=== PATIENT | female | born 1995 | race Caucasian/White ===

== ENCOUNTER 2020-06-26 17:14 | Inpatient (IN) | payer OTHER, SELFPAY ==
[2020-06-26] VITALS (11 sets, daily range): BP systolic 107–131; BP diastolic 55–69; PULSE 98–143; RESP 18–20; TEMP 36.3–37.2; O2SAT 97–98; BMI 24.2
[2020-06-26] MEDS: Haloperidol Lactate 5 MG/ML VIAL IM ×2 (17:30→22:23)
--- NOTE | 2020-06-26 17:49 | ED_ITS ---
HPI - Psych General Chief Complaint: Psychiatric Symptoms Stated Complaint: crisis Time Seen by Provider: 06/26/20 17:34 Source: EMS Mode of arrival: EMS Limitations: no limitations History of Present Illness HPI Narrative: patient comes to the emergency room, being brought by EMS. According to EMS, the patient was in charge with her family, had just returned home after being in the . Seems that the whole family was praying for the patient, then the patient became very agitated, started ripping her clothes off. patient had to be restrained by EMS and was brought to the emergency room. Patient is unable to give any history, patient keeps saying God is not there . According to PD who is at the scene, they know the patient her family, seems that the patient might have history of schizophrenia but they are not sure Related Data Allergies Allergy/AdvReac Type Severity Reaction Status Date / Time No Known Allergies Allergy Verified 06/26/20 17:34 Review of Systems Review of Systems: Yes Unobtainable due to mental status PMFSH Past Medical History Medical History Schizophrenia Social History Social History Alcohol intake: unknown Smoking Status: Unknown if ever smoked Use of substances other than those prescribed or required for medical reasons: Unknown Advance Directives: No Advance Directives Information Provided: No Physical Exam Vital Signs: Vital Signs: Last Vital Signs Temp 97.3 F 06/26/20 23:15 Pulse 98 06/26/20 23:15 Resp 18 06/26/20 23:15 BP 107/64 06/26/20 23:15 Pulse Ox 97 06/26/20 23:15 Body Mass Index 24.2 Appearance: patient is alert, unable to answer any questions, keeps failing her arms and legs, does not seem to be intentionally trying to harm anyone Eyes: Pupils equal, round and reactive to light. ENT: Pharynx normal. Neck: Normal inspection. Neck supple. No lymph nodes noted. No crepitus CVS: Normal heart rate and rhythm. Pulses normal. Normal S1 and S2 Respiratory: No respiratory distress. Breath sounds normal. No Wheezing. No rales Abdomen: Soft and nontender. No rigidity. No distention. good BS x4 Skin: Skin warm and dry. Normal skin color. Normal skin turgor. Extremities: No lower extremity edema. No lower extremity edema. No Lacerations. No Rash Neuro: Oriented X 3. No motor deficit. No sensory deficit. Moving all ext ermities. No slurred speech. Psych: flat affect, yelling advent things, patient uncooperative Course Course Course Narrative: Less than an hour after the 1st physical and chemical restraint, patient was taking off 4 point restraints. Patient remained calm and cooperative, sitting in her bed. Later in the evening, approximately at 22:00, patient became agitated, combative, taking her clothes off, becoming sexually provocative with the staff, patient had to be restrained physically and chemically again. Patient is now on four-point restraint. I will re-evaluate the patient again in 1 hour Patient reassessed, patient is sleeping unrestrained. For the shift, patient has been physically and chemically restrained twice. Patient does not seem to have intention of hurting anyone, patient is quite psychotic at this time. [facility] evaluated the patient, it seems that she has possibly schizoaffective disorder. Patient is under Section 12 now, patient is a bed search now. Sign-out given to Dr. Cyr [facility] - Psych Restraints Face to Face Assessment: Face to Face Assessment: Current Situation: After assessment of the patient, a review of the pertinent medical record and a discussion with nursing staff, I feel the patient requires a restrain intervention. Reaction To: [] Medical Condition: [] Behavioral State: [] Continued Need: [] Lab Data Result diagrams: 06/26/20 21:12 06/26/20 21:12 Labs: Lab Results 06/26/20 06/26/20 Range/Units 21:12 21:12 WBC 10.9 H (4.8-10.8) X10*3/uL RBC 4.59 (4.20-5.50) X10*6/uL Hgb 12.8 (12.0-16.0) g/dl Hct 38.4 (37-47) % MCV 83.7 (80-98) fL MCH 27.9 (27.0-33.0) pg MCHC 33.3 (31.0-35.0) g/dl RDW 12.7 (11.0-16.0) % Plt Count 253 (160-400) X10*3/uL MPV 9.9 (9.4-12.3) fL Immature Gran % (Auto) 0.2 (0.0-0.4) % Neut % (Auto) 67.9 (45-73) % Lymph % (Auto) 24.2 (20-40) % [place] % (Auto) 7.2 (2-11) % Eos % (Auto) 0.3 (0-4) % Baso % (Auto) 0.2 (0-2) % Lymph # (Auto) 2.6 (1.2-4.9) X10*3/uL [place] # (Auto) 0.8 (0.1-1.2) X10*3/uL Eos # (Auto) 0.0 (0.0-0.4) X10*3/uL Baso # (Auto) 0.0 (0.0-0.2) X10*3/uL Abs Immat Gran (auto) 0.02 (0.00-0.03) X10*3/uL Absolute Neuts (auto) 7.4 (2.0-8.3) X10*3/uL Absolute Nucleated RBC 0.000 (0.0-0.012) X10*3/uL Nucleated RBC % (auto) 0.0 (0.0-0.2) /100WBC Sodium 139 (135-145) mmol/L Potassium 3.7 (3.3-5.1) mmol/l Chloride 105 (96-108) mmol/L Carbon Dioxide 22 (22-29) mmol/L Anion Gap 16 (12-20) BUN 13 (9-16) mg/dL Creatinine 0.81 (0.5-1.4) mg/dL Estim Creat Clear Calc 101.9 Estimated GFR > 60 Random Glucose 100 (60-115) mg/dL Calcium 9.4 (8.4-10.2) mg/dL Total Bilirubin 0.8 (0.0-1.0) mg/dL Direct Bilirubin 0.3 (0.0-0.5) mg/dL AST 22 (5-31) U/L ALT 9 (0-31) U/L Alkaline Phosphatase 55 (39-117) U/L Total Protein 8.2 H (6.5-8.0) g/dL Albumin 4.9 (3.5-5.0) g/dL Discharge Plan Discharge Clinical Impression: Acute psychosis
--- NOTE | 2020-06-26 18:52 | PC.NURSE ---
pt much more calm and cooperative at this time, asking for phone numbers from cell phone, provided. pt back in room at this time, educated about bh and sec 12 process. pt sts im gonna try and just rest a little .
--- NOTE | 2020-06-26 20:21 | PC.NURSE ---
Pt quiet, wandering into other patient rooms, confused, redirectable.
[2020-06-26 21:20] LABS: Basophils Percent Auto 0.2 % (0-2); Eosinophils Percent Auto 0.3 % (0-4); Hematocrit 38.4 % (37-47); Hemoglobin 12.8 g/dl (12.0-16.0); Imm Gran Abs Auto 0.02 X10*3/uL (0.00-0.03); Imm Gran Pct Auto 0.2 % (0.0-0.4); Lymphocytes Absolute Auto 2.6 X10*3/uL (1.2-4.9); Lymphocytes Percent Auto 24.2 % (20-40); MANUAL DIFF FLAG NO; Mean Corpuscular HGB Conc 33.3 g/dl (31.0-35.0); Mean Corpuscular Hemoglobin 27.9 pg (27.0-33.0); Mean Corpuscular Volume 83.7 fL (80-98); Mean Platelet Volume 9.9 fL (9.4-12.3); Monocytes Absolute Auto 0.8 X10*3/uL (0.1-1.2); Monocytes Percent Auto 7.2 % (2-11); Neutrophils Absolute Auto 7.4 X10*3/uL (2.0-8.3); Neutrophils Percent Auto 67.9 % (45-73); Platelet Count 253 X10*3/uL (160-400); Red Blood Count 4.59 X10*6/uL (4.20-5.50); Red Cell Distribution Width 12.7 % (11.0-16.0); White Blood Count 10.9 X10*3/uL (4.8-10.8)
[2020-06-26 21:38] LABS: Alanine Aminotransferase 9 U/L (0-31); Albumin Level 4.9 g/dL (3.5-5.0); Alkaline Phosphatase 55 U/L (39-117); Anion Gap 16 (12-20); Aspartate Amino Transferase 22 U/L (5-31); Bilirubin Direct 0.3 mg/dL (0.0-0.5); Bilirubin Total 0.8 mg/dL (0.0-1.0); Blood Urea Nitrogen 13 mg/dL (9-16); Calcium 9.4 mg/dL (8.4-10.2); Carbon Dioxide 22 mmol/L (22-29); Chloride 105 mmol/L (96-108); Creatinine Clr Calc Pharmacy 101.9; Estimated Glomerular Filt Rate > 60; Glucose Random 100 mg/dL (60-115); Potassium 3.7 mmol/l (3.3-5.1); Sodium 139 mmol/L (135-145); Total Protein 8.2 g/dL (6.5-8.0)
[2020-06-26] MEDS: diphenhydrAMINE HCL 50 MG/ML VIAL IM (22:23)
[2020-06-26] MEDS: LORazepam 2 MG/ML VIAL IM (22:23)
--- NOTE | 2020-06-26 22:24 | PC.NURSE ---
Pt disrobing outside of room. Asked by tech to button up loren. Refused. Swatted at RN who attempted to help button loren. At the phone, sitting in a provocative manner. No, dial the phone for me , nonsensical speech. Security called, became combative when they tried to intervene. Physically restrained at 2199. haldol 5 MG, ativan 2 MG, and benadryl 50 MG IM given at 2114.
--- NOTE | 2020-06-26 23:45 | PC.NURSE ---
PT restrained at 22:00. Restraints released at 23:30 following agreement to appropriate behavior on the unit from the PT. When the PT was released from restraints she was calm and cooperative. PT fell asleep right after restraints were released.
[2020-06-27 06:20] VITALS: RESP 16
--- NOTE | 2020-06-27 07:45 | PC.NURSE ---
Pt resting, respirations even and unlabored, in no apparent distress. Pt is inpatient bedsearch.
[2020-06-27 10:08] VITALS: RESP 18
[2020-06-27 12:18] VITALS: RESP 18
--- NOTE | 2020-06-27 17:53 | PC.NURSE ---
Pt continues sleeping, was awake making phone calls then returned to bed. Respirations even and unlabored in no apparent distress.
[2020-06-27 19:27] LABS: Amphetamine Screen Urine Not Detected (Not Detect); Barbiturates, Urine Not Detected (Not Detect); Benzodiazepines Screen Urine Not Detected (Not Detect); Cannabinoid Screen Urine POSITIVE (Not Detect); Cocaine Screen Urine Not Detected (Not Detect); Opiate Screen Urine Not Detected (Not Detect); Phencyclidine Screen Urine Not Detected (Not Detect)
[2020-06-27 20:12] VITALS: BP 112/77; PULSE 90; RESP 20; TEMP 36.6; O2SAT 100
[2020-06-27 22:00] VITALS: PULSE 18
[2020-06-28] VITALS (10 sets, daily range): BP systolic 99–114; BP diastolic 69–72; PULSE 82–89; RESP 16–20; TEMP 36.6–36.9; O2SAT 96–98
--- NOTE | 2020-06-28 05:03 | PC.NURSE ---
S/E:pt calm and cooperative. Ambulated to bathroom with steady gait. made a phone call. VSS. Flat mood. slept well. Section 12 in patient bed search continues.
--- NOTE | 2020-06-28 07:15 | PC.NURSE ---
Report received from CHRISTI Sanon. Pt resting, Resp unlabored.
--- NOTE | 2020-06-28 10:01 | PC.NURSE ---
Pt awake, on telephone with mother. Per report, pt is anxious re: behavior of another pt on unit, who is very agitated. MHA w/ pt- reassured.
--- NOTE | 2020-06-28 11:11 | PC.NURSE ---
[facility] called to request assessment information- state they will fax. N March contacted re: possible psych evaluation.
--- NOTE | 2020-06-28 12:22 | PC.NURSE ---
Pt resting, awake, no concerns reported.
[2020-06-28 14:08] LABS: Glucose Urine UA NEG (NEG); Leukocyte Esterase Urine NEG (NEG); Nitrite Urine NEG (NEG); Specific Gravity - Urine >= 1.030 (1.005-1.025); Urine Blood NEG (NEG); Urine Ketones >=80 MG/DL (NEG); Urine Protein NEG (NEG-TRACE)
[2020-06-28 14:12] LABS: Appearance Urine CLOUDY; Color Urine YELLOW; UACC Culture Trigger NO; UPreg QC Valid YES; Urine Pregnancy NEGATIVE (NEGATIVE)
--- NOTE | 2020-06-28 14:55 | PC.NURSE ---
Pt currently in shower.
--- NOTE | 2020-06-28 15:56 | PC.NURSE ---
Pt reporting that she has noticed some discharge coming from nipple of left breast. Kevin Wilson aware.
--- NOTE | 2020-06-28 16:21 | PC.NURSE ---
Pt seen by Dwight Mar- per Dwight Mar, pt does not believe she neeeds medications. While in pod pt has been in behavioral control, affect guarded, responds to questions after a delay.
--- NOTE | 2020-06-28 16:28 | MHC.CARE ---
Late Entry for encounter dated 06/27/20 @ 20:00 CARE team approached by A staff re: questions pt was asking and requested that this promotion writer speak with pt to offer support or insight if needed. Pt was pleasant with this promotion writer on approach and while initially presenting as suspicious of the interaction, pt began to speak openly and went through pages of lists that pt had been making throughout the day. Pt was religiously preoccupied, with an intense vacant stare, and was slow to respond at times. Pt asked several times how she is to know whether she is God or the devil, and stated that she wants to know who she is and not who people tell her she is. Pt did not have any specific questions, though shared that she has had one other episode similar to her presentation on arrival on 06/26/20 while she was in the . [place] noting is that pt's behavioral presentation was improved from how she was presenting during her initial crisis evaluation, which was relayed to the [facility] crisis team for the clinician assigned to complete pt's MSU, however pt does present as possibly responding to internal stimuli, with christianity preoccupation and paranoid delusions. --- Today, 06/28/20 CARE team spoke briefly with ANTHONY Mar re: psych consult completed with pt, who stated that pt was previously on invega while in the however pt has not been compliant with medications and is not agreeable to medications at this time. Pt is pending another MSU with [facility] crisis later this evening, and at this time continues to board in the ED on a Section 12a as an inpt psych bedsearch.
--- NOTE | 2020-06-28 19:31 | PC.NURSE ---
Patient in her room, working on puzzle, calm and quiet, in good behavioral control, expresses her needs very appropriately, denied distress, will continue to monitor.
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
--- NOTE | 2020-06-28 20:19 | PC.NURSE ---
[facility] reassessed the patient, disposition in-patient bed search, patient aware, will continue to monitor.
[2020-06-28] MEDS: risperiDONE 1 MG TABLET PO (22:23)
--- NOTE | 2020-06-28 22:48 | PC.NURSE ---
Patient has new medication order, Resperidone 1 mg at bedtime, patient hesitant to take Risperidone, education leaflet was offered/educated of medication/finally agreed and took her medication. Patient tolerated well. Will monitor for any adverse reaction to the medication and provide safety and comfort.
--- NOTE | 2020-06-28 23:52 | PC.NURSE ---
Patient currently sitting in her chair, working on her puzzle, quiet & calm, no distress reported, will continue to monitor.
--- NOTE | 2020-06-29 01:19 | PC.NURSE ---
Patient in bed appears sleeping, no distress observed/reported, respiration +/=/non-labored bilaterally, will continue to monitor and provide comfort and safety.
--- NOTE | 2020-06-29 04:04 | PC.NURSE ---
Patient was up for 20 minutes, snacked/refreshed/back to bed. Denied distress. Will continue to monitor.
[2020-06-29 06:55] VITALS: BP 120/79; PULSE 116; RESP 16; TEMP 36.7; O2SAT 98
--- NOTE | 2020-06-29 06:55 | PC.NURSE ---
Patient in bed appears sleeping, no distress observed/reported, respiration +/=/non-labored bilaterally, will continue to monitor.
--- NOTE | 2020-06-29 07:37 | PC.NURSE ---
Report received from CHRISTI Sanon. Pt awake, affect even, states she slept well.
--- NOTE | 2020-06-29 08:48 | PC.NURSE ---
Pt currently on telephone
[2020-06-29 09:27] VITALS: BP 105/73; PULSE 74; TEMP 36.6; O2SAT 98
--- NOTE | 2020-06-29 09:58 | PC.NURSE ---
Pt resting in room, resp unlabored.
[2020-06-29 10:00] VITALS: RESP 18
--- NOTE | 2020-06-29 13:36 | PC.NURSE ---
Pt on telephone. Inquired re: inpatient plans. Pt has been on inpatient unit in past, but reviewed w/ pt inpatient process. Questions answered as asked.
[2020-06-29 13:57] LABS: COVID-19 Test Negative (Negative); IDNOW Serial# 9DD0AD1C
--- NOTE | 2020-06-29 16:49 | PC.NURSE ---
Pt awake, in common area, on telephone. Pt appears more focused, able to ask questions of staff as needed.
--- NOTE | 2020-06-29 17:11 | PC.NURSE ---
Report given to CHRISTI Melchor on M5.
[2020-06-29 17:33] VITALS: BP 108/72; PULSE 81; TEMP 36.7; O2SAT 99
[2020-06-29 18:00] VITALS: RESP 20
--- NOTE | 2020-06-29 19:42 | PC.NURSE ---
Patient calm, pleasant, smiling at time, denied distress, patient wants to know what time she is going to M5, care team called/no time line at this time/patient made aware, will continue to monitor.
[2020-06-29] MEDS: risperiDONE 1 MG TABLET PO (20:04)
[2020-06-29 20:39] VITALS: BP 151/85; PULSE 116; RESP 20; TEMP 36.6; O2SAT 97
--- NOTE | 2020-06-29 20:57 | PC.NURSE ---
Patient compliant with HS PO medication, calm and quiet, tentative time to go to M5 is 2130 per care team, patient made aware, will continue to monitor.
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
[2020-06-30 06:15] VITALS: BP 117/70; PULSE 83; RESP 18; TEMP 36.8
[2020-06-30 07:54] LABS: MANUAL DIFF FLAG NO
[2020-06-30 07:59] LABS: Basophils Percent Auto 0.2 % (0-2); Eosinophils Absolute Auto 0.1 X10*3/uL (0.0-0.4); Eosinophils Percent Auto 0.9 % (0-4); Hematocrit 39.7 % (37-47); Hemoglobin 12.9 g/dl (12.0-16.0); Imm Gran Abs Auto 0.01 X10*3/uL (0.00-0.03); Imm Gran Pct Auto 0.2 % (0.0-0.4); Lymphocytes Absolute Auto 1.8 X10*3/uL (1.2-4.9); Lymphocytes Percent Auto 30.5 % (20-40); Mean Corpuscular HGB Conc 32.5 g/dl (31.0-35.0); Mean Corpuscular Hemoglobin 27.6 pg (27.0-33.0); Mean Platelet Volume 10.2 fL (9.4-12.3); Monocytes Absolute Auto 0.4 X10*3/uL (0.1-1.2); Monocytes Percent Auto 7.6 % (2-11); Neutrophils Absolute Auto 3.5 X10*3/uL (2.0-8.3); Neutrophils Percent Auto 60.6 % (45-73); Platelet Count 219 X10*3/uL (160-400); Red Blood Count 4.67 X10*6/uL (4.20-5.50); Red Cell Distribution Width 12.6 % (11.0-16.0); White Blood Count 5.8 X10*3/uL (4.8-10.8)
[2020-06-30 08:27] LABS: Estimated Average Glucose 105 mg/dL; Hemoglobin A1c % 5.3 %
[2020-06-30 16:58] VITALS: BP 107/69; PULSE 81; TEMP 36.7
--- NOTE | 2020-06-30 20:21 | P.HPPS_ITS ---
HPI Chief Complaint: crisis Sources of Information: patient interviewed ( not able to give a clear narrative in history at this time) and crisis/core team assessment reviewed HPI Narrative: patient is a 24-year-old female brought to the emergency room by ambulance after her mother called 911. patient had been acting bizarrely at buddhist taking of her clothes feeling that she had done bad things and that she was the devil. She required chemical and physical restraint in the emergency r oom due to combative behavior. Patient has a history of bizarre psychotic behavior had been hospitalized previously in [place] patient unable to give me the time frame or dates. She apparently has not been taking antipsychotic medication she had been on Invega Systane a. patient has been off medication for the past 5 months. There is a history of bizarre self-harming behavior stabbing herself a pencil Past Psychiatric History: please see crisis eval for full hx per patient report 1 psychiatric admission was on Invega injectable previously Medical Evaluation Reviewed: Yes [facility] Medical History Schizophrenia Family History: positive for bipolar disorder Social History: patient currently living with her mother recently discharged from the [employer] secondary to psychotic break she is not no children Substance History: positive history of cocaine and marijuana use Trauma History: unclear at this time Diagnostics Vital Signs (24Hr): Vital Signs - 24 hr 06/29/20 20:39 06/30/20 06:15 06/30/20 16:58 Temperature 98 F 98.2 F 98.0 F Pulse Rate 116 H 83 81 Respiratory Rate 20 18 Blood Pressure 151/85 H 117/70 107/69 Pulse Oximetry 97 Body Mass Index 24.2 Labs Results: 06/30/20 07:44 06/26/20 21:12 Labs: Laboratory Results - last 48 hr 06/29/20 06/30/20 06/30/20 12:58 07:44 07:44 WBC 5.8 RBC 4.67 Hgb 12.9 Hct 39.7 MCV 85.0 MCH 27.6 MCHC 32.5 RDW 12.6 Plt Count 219 MPV 10.2 Immature Gran % (Auto) 0.2 Neut % (Auto) 60.6 Lymph % (Auto) 30.5 [place] % (Auto) 7.6 Eos % (Auto) 0.9 Baso % (Auto) 0.2 Lymph # (Auto) 1.8 [place] # (Auto) 0.4 Eos # (Auto) 0.1 Baso # (Auto) 0.0 Abs Immat Gran (auto) 0.01 Absolute Neuts (auto) 3.5 Absolute Nucleated RBC 0.000 Nucleated RBC % (auto) 0.0 Estimat Average Glucose 105 Hemoglobin A1c % 5.3 COVID-19 (YONI) Negative COVID-19 Clin Com See Note Meds/Allergies Meds Home Medications Acetaminophen (Acetaminophen 325 Mg Tablet) 650 mg PO Q6H PRN PRN Reason: Headache/Pain Mild Scale (1-3) Al Hydroxide/Mg Hydroxide (Magnesium Hydrox/Alum Hydrox 30 Ml Oral.Susp) 30 ml PO Q6H PRN PRN Reason: Heartburn/Nausea Diphenhydramine HCl (Diphenhydramine Hcl 25 Mg Tablet) 50 mg PO Q4H PRN PRN Reason: agitation Haloperidol (Haloperidol 5 Mg Tablet) 5 mg PO Q4H PRN PRN Reason: agitation Hydroxyzine HCl (Hydroxyzine Hcl 25 Mg Tablet) 25 mg PO BEDTIME PRN PRN Reason: Anxiety Lorazepam (Lorazepam 1 Mg Tablet) 2 mg PO Q4H PRN PRN Reason: agitation Magnesium Hydroxide (Milk Of Magnesia 30 Ml Oral.Susp) 30 ml PO DAILY PRN PRN Reason: Constipation Risperidone (Risperidone 0.5 Mg Tablet) 2 mg PO BEDTIME MARISELA Last Admin: 06/30/20 21:47 Dose: 2 mg Documented by: Trazodone HCl (Trazodone Hcl 50 Mg Tablet) 50 mg PO BEDTIME PRN PRN Reason: Insomnia Allergies Allergies Allergy/AdvReac Type Severity Reaction Status Date / Time No Known Allergies Allergy Verified 06/26/20 17:34 Mental Status Exam Mental Status Exam Narrative: patient with delusional guilt feeling somehow she is a devil guilty over past use of substances or paranoid concerns she is going to be killed Patient Appearance: Appropriate Patient Orientation: Person, Place and Situation Patient Behavior: Guarded, Suspicious and Anxious Mood Description: Suspicious, Withdrawn, Fearful, Anxious, Blunted, Sad and Nervous Affect Description: Depressed, Anxious and Sad Memory Description: Immediate Impaired and Episodic Impaired Delusions: Being Controlled and Paranoid Ideation Perceptual Disturbances: Hallucinations Thought Content: positive for Poverty of Content, positive for Thought Blocking, positive for Slowed Thinking, negative for Suicidal Ideation and negative for Homicidal Ideation Depressive Symptoms: Increased Anxiety, Diff. Making Decisions and Feelings of Guilt Judgement: Fair Judgement and Insight: patient currently excepting treatment review he denies thoughts of harm to self or others at this time cannot explain behavior Assessment & Plan Assessment & Plan (1) Acute psychosis: Status: Acute Code(s): F23 - Brief psychotic disorder (2) Psychosis, atypical: Status: Acute Code(s): F29 - Unspecified psychosis not due to a substance or known physiological condition (3) Cocaine use disorder, mild, abuse: Status: Acute Code(s): F14.10 - Cocaine abuse, uncomplicated Assessment and Plan: with patient had been started on Risperdal will continue for now consider change to Abilify questionable history of galactorrhea and enlarged breasts date to be confirmed check prolactin level. Patient has been off Invega injectable for 5 months recently relapsed with cocaine and marijuana monitor for self-harming behavior trying get discharge summary from [place] clarify history with mother as available will add Ativan for anxiety Patient educated on: medication risk/benefits Informed Consent: further education needed Reason for continued inpatient stay Substantial Risk for: harm to self and inability to function
[2020-06-30] MEDS: risperiDONE 0.5 MG TABLET 2 MG PO (21:47)
[2020-07-01 06:00] VITALS: BP 110/70; PULSE 67; TEMP 36.4
[2020-07-01 06:20] VITALS: BP 110/70; PULSE 67; RESP 16; TEMP 36.4; O2SAT 99
[2020-07-01 07:00] VITALS: BMI 20.3
[2020-07-01 08:56] LABS: Cholesterol 123 mg/dL; HDL Cholesterol 49 mg/dL; LDL Cholesterol Calculated 59 mg/dl; Triglycerides 77 mg/dL
[2020-07-01 09:18] LABS: TSH reflex Free T4 1.53 mIU/mL (0.32-4.0)
[2020-07-01 13:34] LABS: Reflex LDLD? No
[2020-07-01 18:00] VITALS: BP 106/56; PULSE 80; TEMP 37.1
[2020-07-01] MEDS: risperiDONE 0.5 MG TABLET 2 MG PO (20:50)
--- NOTE | 2020-07-01 21:31 | P.PNPSI_ITS ---
Subjective Subjective Reason For Visit: crisis Subjective Notes: Conditional Voluntary Interim History: pt irritable dysphoric thought blocking internally preoccupied difficulty expressing herself quite guarded has been out of room more Medication Compliance: Yes Side effects from medications: No Mental Status Exam Mental Status Exam Narrative: patient more guarded seems resistant to medication Patient Appearance: Appropriate Patient Orientation: Person, Place and Situation Patient Behavior: Guarded, Suspicious and Anxious Mood Description: Suspicious, Withdrawn, Fearful, Anxious, Blunted, Sad and Nervous Affect Description: Suspicious, Withdrawn, Depressed, Anxious and Apprehensive Ability to Follow Directions: Fair Memory Description: Immediate Impaired and Episodic Impaired Delusions: Being Controlled and Paranoid Ideation Perceptual Disturbances: Hallucinations Thought Process: Distracted and Rumination Thought Content: positive for Poverty of Content, positive for Thought Blocking, positive for Slowed Thinking, negative for Suicidal Ideation and negative for Homicidal Ideation Depressive Symptoms: Increased Anxiety, Diff. Making Decisions and Feelings of Guilt Judgement: Fair Judgement and Insight: patient currently excepting treatment review he denies thoughts of harm to self or others at this time cannot explain behavior Diagnostics Vital Signs (24Hr): Vital Signs - 24 hr 07/01/20 06:00 07/01/20 06:20 07/01/20 18:00 Temperature 97.5 F 97.5 F 98.8 F Pulse Rate 67 67 80 Respiratory Rate 16 Blood Pressure 110/70 110/70 106/56 L Pulse Oximetry 99 Body Mass Index 20.3 Labs Results: 06/30/20 07:44 06/26/20 21:12 Labs: Laboratory Results - last 48 hr 06/30/20 06/30/20 07/01/20 07:44 07:44 08:20 WBC 5.8 RBC 4.67 Hgb 12.9 Hct 39.7 MCV 85.0 MCH 27.6 MCHC 32.5 RDW 12.6 Plt Count 219 MPV 10.2 Immature Gran % (Auto) 0.2 Neut % (Auto) 60.6 Lymph % (Auto) 30.5 [place] % (Auto) 7.6 Eos % (Auto) 0.9 Baso % (Auto) 0.2 Lymph # (Auto) 1.8 [place] # (Auto) 0.4 Eos # (Auto) 0.1 Baso # (Auto) 0.0 Abs Immat Gran (auto) 0.01 Absolute Neuts (auto) 3.5 Absolute Nucleated RBC 0.000 Nucleated RBC % (auto) 0.0 Estimat Average Glucose 105 Hemoglobin A1c % 5.3 Triglycerides 77 Cholesterol 123 LDL Cholesterol, Calc 59 HDL Cholesterol 49 TSH 1.53 Medications Medications Current Medications Generic Name Dose Route Start Last Admin Trade Name Freq PRN Reason Stop Dose Admin Acetaminophen 650 mg 06/29/20 17:45 Acetaminophen 325 Mg Tablet PO Q6H PRN Headache/Pain Mild Scale (1-3) Al Hydroxide/Mg Hydroxide 30 ml 06/29/20 17:45 Magnesium Hydrox/Alum Hydrox 30 Ml Oral.Susp PO Q6H PRN Heartburn/Nausea Diphenhydramine HCl 50 mg 06/29/20 22:26 Diphenhydramine Hcl 25 Mg Tablet PO Q4H PRN agitation Haloperidol 5 mg 06/29/20 22:26 Haloperidol 5 Mg Tablet PO Q4H PRN agitation Hydroxyzine HCl 25 mg 06/29/20 17:45 Hydroxyzine Hcl 25 Mg Tablet PO BEDTIME PRN Anxiety Lorazepam 2 mg 06/29/20 22:26 Lorazepam 1 Mg Tablet PO Q4H PRN agitation Magnesium Hydroxide 30 ml 06/29/20 17:45 Milk Of Magnesia 30 Ml Oral.Susp PO DAILY PRN Constipation Risperidone 2 mg 06/30/20 21:00 07/01/20 20:50 Risperidone 0.5 Mg Tablet PO 2 mg BEDTIME MARISELA Administration Trazodone HCl 50 mg 06/29/20 17:45 Trazodone Hcl 50 Mg Tablet PO BEDTIME PRN Insomnia Allergies Allergies Allergy/AdvReac Type Severity Reaction Status Date / Time No Known Allergies Allergy Verified 06/26/20 17:34 Assessment & Plan Assessment & Plan (1) Cocaine use disorder, mild, abuse: Status: Acute Code(s): F14.10 - Cocaine abuse, uncomplicated Assessment and Plan: encourage sobriety (2) Psychosis, atypical: Status: Acute Code(s): F29 - Unspecified psychosis not due to a substance or known physiological condition Assessment and Plan: cont risperadol try and get additional hx and tx info prolactin pending Greater than 50% of the session was spent on counseling and/or coordination of care Patient educated on: medication risk/benefits and substance abuse Informed Consent: further education needed Reason for contiued inpatient stay Substantial Risk for: inability to function and rapid decompensation
[2020-07-02 06:17] VITALS: BP 104/66; PULSE 65; RESP 65; TEMP 36.1; O2SAT 99
[2020-07-02 08:21] LABS: Prolactin 96.2 ng/mL
--- NOTE | 2020-07-02 15:04 | MHC.CARE ---
CARE Team spoke with [facility] in [place] and Pt is benefited through the [facility] - Pt is connected to the [facility] out of the [place], [place]. Per the [place] [facility] contact representative - Pt will have to be registered in [facility] to be eligible for hospital reimbursement. Additional Info: Pts current PCP is Dr. Khoury - PCP
--- NOTE | 2020-07-02 15:21 | MHC.CARE ---
CARE Team left a message for VA registration to register Pt in the local [facility] and provided call back number to [facility] contact .
--- NOTE | 2020-07-02 15:30 | MHC.CARE ---
Day Care Home Provider at the [facility]
[2020-07-02] MEDS: ARIPiprazole 5 MG TABLET PO (15:56)
[2020-07-02 18:00] VITALS: BP 113/62; PULSE 84; TEMP 36.8
--- NOTE | 2020-07-02 21:43 | HO.PSYCHPN ---
Subjective Subjective Reason For Visit: psychotic episode Subjective Notes: Conditional Voluntary Interim History: patient has been guarded withdrawn somewhat suspicious continues with thought blocking educated regarding psychosis elevated prolactin has been accepting medication unable to give clear history Medication Compliance: Yes Mental Status Exam Mental Status Exam Narrative: patient more guarded seems resistant to medication Patient Appearance: Appropriate Patient Orientation: Person, Place and Situation Level of Consciousness: Awake and Alert Patient Behavior: Guarded, Suspicious and Anxious Mood Description: Suspicious, Withdrawn, Fearful, Anxious, Blunted, Sad and Nervous Affect Description: Suspicious, Withdrawn, Depressed, Anxious and Apprehensive Ability to Follow Directions: Fair Speech Pattern: Clear, Monotone, Soft-Spoken and Long Pauses Memory Description: Immediate Impaired and Episodic Impaired Diagnostics Vital Signs (24Hr): Vital Signs - 24 hr 07/02/20 06:17 07/02/20 18:00 Temperature 96.9 F 98.3 F Pulse Rate 65 84 Respiratory Rate 65 H Blood Pressure 104/66 113/62 Pulse Oximetry 99 Body Mass Index 20.3 Labs Results: 06/30/20 07:44 06/26/20 21:12 Labs: Laboratory Results - last 48 hr 07/01/20 07/01/20 08:20 08:20 Triglycerides 77 Cholesterol 123 LDL Cholesterol, Calc 59 HDL Cholesterol 49 TSH 1.53 Prolactin 96.2 H Medications Medications Current Medications Generic Name Dose Route Start Last Admin Trade Name Freq PRN Reason Stop Dose Admin Acetaminophen 650 mg 06/29/20 17:45 Acetaminophen 325 Mg Tablet PO Q6H PRN Headache/Pain Mild Scale (1-3) Al Hydroxide/Mg Hydroxide 30 ml 06/29/20 17:45 Magnesium Hydrox/Alum Hydrox 30 Ml Oral.Susp PO Q6H PRN Heartburn/Nausea Aripiprazole 5 mg 07/02/20 14:45 07/02/20 15:56 Aripiprazole 5 Mg Tablet PO 5 mg DAILY MARISELA Administration Diphenhydramine HCl 50 mg 06/29/20 22:26 Diphenhydramine Hcl 25 Mg Tablet PO Q4H PRN agitation Haloperidol 5 mg 06/29/20 22:26 Haloperidol 5 Mg Tablet PO Q4H PRN agitation Hydroxyzine HCl 25 mg 06/29/20 17:45 Hydroxyzine Hcl 25 Mg Tablet PO BEDTIME PRN Anxiety Lorazepam 2 mg 06/29/20 22:26 Lorazepam 1 Mg Tablet PO Q4H PRN agitation Magnesium Hydroxide 30 ml 06/29/20 17:45 Milk Of Magnesia 30 Ml Oral.Susp PO DAILY PRN Constipation Risperidone 2 mg 06/30/20 21:00 07/01/20 20:50 Risperidone 0.5 Mg Tablet PO 2 mg BEDTIME MARISELA Administration Trazodone HCl 50 mg 06/29/20 17:45 Trazodone Hcl 50 Mg Tablet PO BEDTIME PRN Insomnia Allergies Allergies Allergy/AdvReac Type Severity Reaction Status Date / Time No Known Allergies Allergy Verified 06/26/20 17:34 Assessment & Plan Assessment & Plan (1) Cocaine use disorder, mild, abuse: Status: Acute Code(s): F14.10 - Cocaine abuse, uncomplicated Assessment and Plan: encourage sobriety (2) Psychosis, atypical: Status: Acute Code(s): F29 - Unspecified psychosis not due to a substance or known physiological condition Assessment and Plan: prolactin elevated at 95 patient had been off antipsychotics for 6 months given material regarding psychosis question of cocaine induced psychosis try and get discharge summary from [facility] patient had been on Invega Systane a change Risperdal to Abilify also comes injectable with minimal risk of elevated prolactin consider MRI with cuts through pituitary these much reassurance and Education Greater than 50% of the session was spent on counseling and/or coordination of care
[2020-07-02] MEDS: risperiDONE 0.5 MG TABLET 1 MG PO (21:49)
[2020-07-03 07:23] VITALS: BP 103/54; PULSE 68; TEMP 36.7
[2020-07-03] MEDS: ARIPiprazole 5 MG TABLET PO (08:57)
[2020-07-03 18:00] VITALS: BP 125/90; PULSE 89; TEMP 36.4
[2020-07-03] MEDS: risperiDONE 0.5 MG TABLET 1 MG PO (20:15)
--- NOTE | 2020-07-03 23:35 | P.PNPSI_ITS ---
Subjective Subjective Date of Service: 07/03/20 Reason For Visit: psychotic episode Interim History: Vitals reviewed Labs reviewed Pt seen, chart reviewed and case discussed with nursing staff Pt lying in bed upon approach; she stares at pattern chart writer with blunted affect, speaks little and mostly only nods yes/no to questions. She says she's fine, denies SI, AVH. She denies any complaints. Pt says nothing else. Staff reports pt is med adherent, attends group and eating well and without behavioral incident; however she remains guarded and seemingly paranoid Medication Compliance: Yes Attending Groups: Yes Mental Status Exam Mental Status Exam Patient Appearance: Appropriate Level of Consciousness: Awake Patient Behavior: Guarded and Uncooperative Mood Description: Constricted Affect Description: Constricted Ability to Follow Directions: Fair Speech Pattern: Monotone and Delayed Thought Process: Goal Oriented Thought Content: positive for Goal Oriented Judgement: Poor Judgement and Insight: impaired Diagnostics Vital Signs (24Hr): Vital Signs - 24 hr 07/03/20 07:23 07/03/20 18:00 Temperature 98.1 F 97.6 F Pulse Rate 68 89 Blood Pressure 103/54 L 125/90 H Body Mass Index 20.3 Labs Results: 06/30/20 07:44 06/26/20 21:12 Labs: Laboratory Results - last 48 hr 07/01/20 08:20 Prolactin 96.2 H Medications Medications Current Medications Generic Name Dose Route Start Last Admin Trade Name Freq PRN Reason Stop Dose Admin Acetaminophen 650 mg 06/29/20 17:45 Acetaminophen 325 Mg Tablet PO Q6H PRN Headache/Pain Mild Scale (1-3) Al Hydroxide/Mg Hydroxide 30 ml 06/29/20 17:45 Magnesium Hydrox/Alum Hydrox 30 Ml Oral.Susp PO Q6H PRN Heartburn/Nausea Aripiprazole 5 mg 07/02/20 14:45 07/03/20 08:57 Aripiprazole 5 Mg Tablet PO 5 mg DAILY MARISELA Administration Diphenhydramine HCl 50 mg 06/29/20 22:26 Diphenhydramine Hcl 25 Mg Tablet PO Q4H PRN agitation Haloperidol 5 mg 06/29/20 22:26 Haloperidol 5 Mg Tablet PO Q4H PRN agitation Hydroxyzine HCl 25 mg 06/29/20 17:45 Hydroxyzine Hcl 25 Mg Tablet PO BEDTIME PRN Anxiety Lorazepam 1 mg 07/02/20 21:43 Lorazepam 1 Mg Tablet PO Q4H PRN agitation Magnesium Hydroxide 30 ml 06/29/20 17:45 Milk Of Magnesia 30 Ml Oral.Susp PO DAILY PRN Constipation Risperidone 1 mg 07/02/20 21:45 07/03/20 20:15 Risperidone 0.5 Mg Tablet PO 1 mg BEDTIME MARISELA Administration Trazodone HCl 50 mg 06/29/20 17:45 Trazodone Hcl 50 Mg Tablet PO BEDTIME PRN Insomnia Allergies Allergies Allergy/AdvReac Type Severity Reaction Status Date / Time No Known Allergies Allergy Verified 06/26/20 17:34 Assessment & Plan with with psychotic illness continue with primary teams tx plan
[2020-07-04 06:00] VITALS: BP 113/64; PULSE 69; TEMP 36.6
[2020-07-04] MEDS: ARIPiprazole 5 MG TABLET PO (08:53)
--- NOTE | 2020-07-04 13:55 | HO.PSYCHPN ---
Subjective Subjective Date of Service: 07/04/20 Reason For Visit: psychotic episode Interim History: Vitals reviewed Labs reviewed Pt seen, chart reviewed and case discussed with nursing staff Pt is more friendly and talkative on approach today. She says she's feeling better than when first arrived and that meds are helping; on note her affect is a little brighter and she demonstrates more facial expression. [employer] Pain[employer] Grader asked her to elaborate and she reports that she no longer has racing thoughts...the thoughts were coming so fast that i couldn't understand. Pt denies any AVH. She reports she's had some trouble sleeping and asks for Melatonin. Staff reports pt is med adherent, social in [place], eating well and safe on the unit without behavioral incident Medication Compliance: Yes Attending Groups: Yes Mental Status Exam Mental Status Exam Patient Appearance: Well Grooomed and Appropriate Patient Orientation: Person, Place and Situation Level of Consciousness: Awake and Appropriate Patient Behavior: Guarded (but less so) and Good Eye Contact Mood Description: Calm Affect Description: Relaxed and Blunted (but less so) Ability to Follow Directions: Good Speech Pattern: Clear, Monotone, Soft-Spoken and Delayed Delusions: Not Present Thought Process: Goal Oriented and Linear Thought Content: positive for [place] Judgement: Fair Judgement and Insight: impaired but improving Diagnostics Vital Signs (24Hr): Vital Signs - 24 hr 07/03/20 18:00 07/04/20 06:00 Temperature 97.6 F 97.9 F Pulse Rate 89 69 Blood Pressure 125/90 H 113/64 Body Mass Index 20.3 Labs Results: 06/30/20 07:44 06/26/20 21:12 Medications Medications Current Medications Generic Name Dose Route Start Last Admin Trade Name Freq PRN Reason Stop Dose Admin Acetaminophen 650 mg 06/29/20 17:45 Acetaminophen 325 Mg Tablet PO Q6H PRN Headache/Pain Mild Scale (1-3) Al Hydroxide/Mg Hydroxide 30 ml 06/29/20 17:45 Magnesium Hydrox/Alum Hydrox 30 Ml Oral.Susp PO Q6H PRN Heartburn/Nausea Aripiprazole 5 mg 07/02/20 14:45 07/04/20 08:53 Aripiprazole 5 Mg Tablet PO 5 mg DAILY MARISELA Administration Diphenhydramine HCl 50 mg 06/29/20 22:26 Diphenhydramine Hcl 25 Mg Tablet PO Q4H PRN agitation Haloperidol 5 mg 06/29/20 22:26 Haloperidol 5 Mg Tablet PO Q4H PRN agitation Hydroxyzine HCl 25 mg 06/29/20 17:45 Hydroxyzine Hcl 25 Mg Tablet PO BEDTIME PRN Anxiety Lorazepam 1 mg 07/02/20 21:43 Lorazepam 1 Mg Tablet PO Q4H PRN agitation Magnesium Hydroxide 30 ml 06/29/20 17:45 Milk Of Magnesia 30 Ml Oral.Susp PO DAILY PRN Constipation Risperidone 1 mg 07/02/20 21:45 07/03/20 20:15 Risperidone 0.5 Mg Tablet PO 1 mg BEDTIME MARISELA Administration Trazodone HCl 50 mg 06/29/20 17:45 Trazodone Hcl 50 Mg Tablet PO BEDTIME PRN Insomnia Allergies Allergies Allergy/AdvReac Type Severity Reaction Status Date / Time No Known Allergies Allergy Verified 06/26/20 17:34 Assessment & Plan Pt remains reticent but less so and with noticeably brighter affect; though speech not really spontaneous, she is more willing to engage. Will add Melatonin 3mg qhs for insomnia at patients request Otherwise, Continue with current tx plan Greater than 50% of the session was spent on counseling and/or coordination of care
[2020-07-04 18:00] VITALS: BP 114/66; PULSE 81; TEMP 36.9
[2020-07-04] MEDS: risperiDONE 0.5 MG TABLET 1 MG PO (21:12)
[2020-07-04] MEDS: Melatonin 3 MG TABLET PO (21:12)
--- NOTE | 2020-07-05 | MR_ITS ---
EXAMINATION: MR BRAIN WITHOUT AND WITH CONTRAST CLINICAL INFORMATION: Galactorrhea/hyperprolactinemia. COMPARISON: None available. TECHNIQUE: Multiplanar, multisequence MRI of the brain was obtained before and after the intravenous administration of 8 mL Gadavist. FINDINGS: Pituitary gland is normal in morphology. The pituitary bright spot is present and normally positioned. No discrete hypoenhancing lesions are identified. Infundibulum is midline. There is no mass effect on the optic nerve apparatus. Cavernous sinuses are symmetric and normal. There is no pathologic intracranial enhancement. No parenchymal signal abnormality. There is no hydrocephalus, extra-axial surface collection, or herniation. The major flow voids at the skull base are preserved. There is no acute infarct on diffusion-weighted imaging. There is no intracranial hemorrhage on the gradient recalled echo acquisition. The midline structures are normal. The cerebellar tonsils are normally positioned. The cerebellum and brainstem are normal. The craniocervical junction is normal. Osseous marrow signal intensity is homogenous. The visualized soft tissues are unremarkable. MR/MR head/brain wo/w con IMPRESSION: No pituitary lesions are identified. There is no sellar/suprasellar mass effect. Unremarkable MRI of the brain and pituitary gland.
[2020-07-05 05:50] VITALS: BP 99/59; PULSE 67; RESP 16; TEMP 36.6
[2020-07-05] MEDS: ARIPiprazole 5 MG TABLET PO (08:42)
--- NOTE | 2020-07-05 12:32 | P.PNPSI_ITS ---
Subjective Subjective Reason For Visit: psychotic episode Subjective Notes: Conditional Voluntary Interim History: patient seems more organized in thought was able to give information to social Work regarding where he had been hospitalized was able to take in information regarding MRI has galactorrhea but denies difficulty with menses Medication Compliance: Yes Mental Status Exam Mental Status Exam Narrative: patient with improved ability to concentrating give history Patient Appearance: Well Grooomed and Appropriate Patient Orientation: Person, Place and Situation Level of Consciousness: Awake and Appropriate Patient Behavior: Guarded (but less so) and Good Eye Contact Mood Description: Calm and Flat Affect Description: Relaxed and Blunted (but less so) Ability to Follow Directions: Good Speech Pattern: Clear, Monotone, Soft-Spoken and Delayed Delusions: Not Present Thought Process: Goal Oriented and Linear Thought Content: positive for [employer] Judgement: Fair Judgement and Insight: impaired but improving Diagnostics Vital Signs (24Hr): Vital Signs - 24 hr 07/04/20 18:00 07/05/20 05:50 Temperature 98.5 F 97.9 F Pulse Rate 81 67 Respiratory Rate 16 Blood Pressure 114/66 99/59 L Body Mass Index 20.3 Labs Results: 06/30/20 07:44 06/26/20 21:12 Medications Medications Current Medications Generic Name Dose Route Start Last Admin Trade Name Freq PRN Reason Stop Dose Admin Acetaminophen 650 mg 06/29/20 17:45 Acetaminophen 325 Mg Tablet PO Q6H PRN Headache/Pain Mild Scale (1-3) Al Hydroxide/Mg Hydroxide 30 ml 06/29/20 17:45 Magnesium Hydrox/Alum Hydrox 30 Ml Oral.Susp PO Q6H PRN Heartburn/Nausea Aripiprazole 5 mg 07/02/20 14:45 07/05/20 08:42 Aripiprazole 5 Mg Tablet PO 5 mg DAILY MARISELA Administration Diphenhydramine HCl 50 mg 06/29/20 22:26 Diphenhydramine Hcl 25 Mg Tablet PO Q4H PRN agitation Haloperidol 5 mg 06/29/20 22:26 Haloperidol 5 Mg Tablet PO Q4H PRN agitation Hydroxyzine HCl 25 mg 06/29/20 17:45 Hydroxyzine Hcl 25 Mg Tablet PO BEDTIME PRN Anxiety Lorazepam 1 mg 07/02/20 21:43 Lorazepam 1 Mg Tablet PO Q4H PRN agitation Magnesium Hydroxide 30 ml 06/29/20 17:45 Milk Of Magnesia 30 Ml Oral.Susp PO DAILY PRN Constipation Melatonin 3 mg 07/04/20 21:00 07/04/20 21:12 Melatonin 3 Mg Tablet PO 3 mg BEDTIME MARISELA Administration Risperidone 1 mg 07/02/20 21:45 07/04/20 21:12 Risperidone 0.5 Mg Tablet PO 1 mg BEDTIME MARISELA Administration Trazodone HCl 50 mg 06/29/20 17:45 Trazodone Hcl 50 Mg Tablet PO BEDTIME PRN Insomnia Allergies Allergies Allergy/AdvReac Type Severity Reaction Status Date / Time No Known Allergies Allergy Verified 06/26/20 17:34 Assessment & Plan Assessment & Plan (1) Cocaine use disorder, mild, abuse: Status: Acute Code(s): F14.10 - Cocaine abuse, uncomplicated (2) Psychosis, atypical: Status: Acute Code(s): F29 - Unspecified psychosis not due to a substance or known physiological condition Assessment and Plan: patient was able to give informed consent to MRI remain somewhat withdrawn flat denies hallucinations quaker delusional material Risperdal discontinued Abilify 10 mg will need outpatient referrals Greater than 50% of the session was spent on counseling and/or coordination of care Patient educated on: diagnosis, medication risk/benefits and medical condition Informed Consent: further education needed Reason for contiued inpatient stay Substantial Risk for: rapid decompensation
[2020-07-05 18:00] VITALS: BP 121/71; PULSE 104; TEMP 36.8
[2020-07-05] MEDS: Melatonin 3 MG TABLET PO (21:15)
[2020-07-06 06:20] VITALS: BP 115/68; PULSE 76; RESP 16; TEMP 36.9; O2SAT 100
[2020-07-06] MEDS: ARIPiprazole 10 MG TABLET PO (08:25)
[2020-07-06 18:00] VITALS: BP 112/67; PULSE 104; TEMP 37
[2020-07-06] MEDS: Melatonin 3 MG TABLET PO (20:14)
--- NOTE | 2020-07-06 23:00 | P.PNPSI_ITS ---
Subjective Subjective Date of Service: 07/06/20 Reason For Visit: psychotic episode Subjective Notes: Conditional Voluntary Interim History: patient denies inter episode psychosis much more verbal regarding stresses in her family father with drug addiction her parents who MRI within normal limits Medication Compliance: Yes Mental Status Exam Mental Status Exam Narrative: patient with improved ability to concentrating give history Patient Appearance: Well Grooomed and Appropriate Patient Orientation: Person, Place and Situation Level of Consciousness: Awake and Appropriate Patient Behavior: Guarded (but less so) and Good Eye Contact Mood Description: Calm and Flat Affect Description: Relaxed, Blunted (but less so) and Flat Ability to Follow Directions: Good Speech Pattern: Clear, Monotone, Soft-Spoken and Delayed Delusions: Not Present Thought Process: Goal Oriented and Linear Thought Content: positive for [employer] Judgement: Fair Judgement and Insight: impaired but improving Diagnostics Vital Signs (24Hr): Vital Signs - 24 hr 07/06/20 06:20 07/06/20 18:00 Temperature 98.5 F 98.6 F Pulse Rate 76 104 H Respiratory Rate 16 Blood Pressure 115/68 112/67 Pulse Oximetry 100 Body Mass Index 20.3 Labs Results: 06/30/20 07:44 06/26/20 21:12 Imaging Radiology Impressions: ITS Impressions Brain MRI 07/05/20 00:00 IMPRESSION: No pituitary lesions are identified. There is no sellar/suprasellar mass effect. Unremarkable MRI of the brain and pituitary gland. Medications Medications Current Medications Generic Name Dose Route Start Last Admin Trade Name Freq PRN Reason Stop Dose Admin Acetaminophen 650 mg 06/29/20 17:45 Acetaminophen 325 Mg Tablet PO Q6H PRN Headache/Pain Mild Scale (1-3) Al Hydroxide/Mg Hydroxide 30 ml 06/29/20 17:45 Magnesium Hydrox/Alum Hydrox 30 Ml Oral.Susp PO Q6H PRN Heartburn/Nausea Aripiprazole 10 mg 07/06/20 09:00 07/06/20 08:25 Aripiprazole 10 Mg Tablet PO 10 mg DAILY MARISELA Administration Diphenhydramine HCl 50 mg 06/29/20 22:26 Diphenhydramine Hcl 25 Mg Tablet PO Q4H PRN agitation Haloperidol 5 mg 06/29/20 22:26 Haloperidol 5 Mg Tablet PO Q4H PRN agitation Hydroxyzine HCl 25 mg 06/29/20 17:45 Hydroxyzine Hcl 25 Mg Tablet PO BEDTIME PRN Anxiety Lorazepam 1 mg 07/02/20 21:43 Lorazepam 1 Mg Tablet PO Q4H PRN agitation Magnesium Hydroxide 30 ml 06/29/20 17:45 Milk Of Magnesia 30 Ml Oral.Susp PO DAILY PRN Constipation Melatonin 3 mg 07/04/20 21:00 07/06/20 20:14 Melatonin 3 Mg Tablet PO 3 mg BEDTIME MARISELA Administration Trazodone HCl 50 mg 06/29/20 17:45 Trazodone Hcl 50 Mg Tablet PO BEDTIME PRN Insomnia Allergies Allergies Allergy/AdvReac Type Severity Reaction Status Date / Time No Known Allergies Allergy Verified 06/26/20 17:34 Assessment & Plan Assessment & Plan (1) Cocaine use disorder, mild, abuse: Status: Acute Code(s): F14.10 - Cocaine abuse, uncomplicated (2) Psychosis, atypical: Status: Acute Code(s): F29 - Unspecified psychosis not due to a substance or known physiological condition Assessment and Plan: patient no longer with psychotic symptoms continue Abilify 10 mg seem safe for discharge tomorrow Greater than 50% of the session was spent on counseling and/or coordination of care
[2020-07-07] MEDS: hydrOXYzine HCL 25 MG TABLET PO (03:11)
[2020-07-07] MEDS: traZODone HCL 50 MG TABLET PO (03:12)
[2020-07-07 05:40] VITALS: BP 103/59; PULSE 67; RESP 16; TEMP 36.4
[2020-07-07] MEDS: ARIPiprazole 10 MG TABLET PO (08:06)
--- NOTE | 2020-07-07 19:42 | P.DS_ITS ---
DS: Providers Provider Date of admission: 06/29/20 17:43 Primary care physician: Unknown Physician DS: Diagnosis Discharge Diagnosis (1) Cocaine use disorder, mild, abuse: Status: Resolved (2) Psychosis, atypical: Status: Acute DS: Medications Discharge Medications Home Medications: Previous Rx's Medication Instructions Recorded aripiprazole 10 mg PO DAILY #30 tab 07/07/20 melatonin 3 mg PO BEDTIME #30 tab 07/07/20 Discharge Plan Discharge Patient Disposition: Home, Self-Care [facility] [place] [facility]. PT WILL GET APPOINTMENT.) [facility] Celest[facility]- [facility] [Other] (Can help to learn about services available at the [facility] ) [facility] [Other] (They have a 24 hour Crisis Services for Mental Health Emergencies if needed. Phone number is [phone] ext [phone] or ext [phone] ) [facility] [Other] Dr La [Other] - 07/13/20 2:20 pm (This is a [facility] Appointment and Dr La will call you at your number [phone] for the appointment ) Physician,Unknown [Primary Care Provider] - Discharge Medications: New melatonin 3 mg Tablet 3 mg PO BEDTIME Qty: 30 RF: 0 aripiprazole 10 mg Tablet 10 mg PO DAILY Qty: 30 RF: 0 Discharge Orders: Discharge Order (Routine); Ordered 07/07/20 Ordered By: Neil Steiner Diet: advance to usual diet Activity on Discharge: As tolerated Patient Instructions: Aripiprazole (By mouth), Galactorrhea (GEN), Psychotic Disorder (DC) Stand Alone Forms: Community Support Discharge Date/Time: 07/07/20 01:15 Visit Report Forms: Patient Portal Discharge page Care Plan Goals: Stable mood avoid use of cocaine and marijuana no hallucinations or delusional thinking Health Concerns: elevated prolactin cocaine use psychotic episode x2 unclear if drug-induced Plan of Treatment: you will be getting her treatment at the [facility] this will most likely include therapy and psychiatric follow-up. You did have an elevated blood level of prolactin with a normal brain MRI this should be followed up with your primary care doctor and psychiatrist Mental Status Exam Mental Status Exam Narrative: PATIENT WAS WELL GROOMED COOPERATIVE BY THE TIME OF DISCHARGE. SHE HAD MUCH BETTER INSIGHT INTO THE NEED TO STAY WAY FROM DRUGS AND NEED FOR ONGOING TREE WITH WITH MEDICATION. SHE WAS NOT PSYCHOTIC OR WHICH SHE WAS FUTURE ORIENTED NO THOUGHTS OF HARM TO HERSELF OR OTHERS Data Imaging Diagnostic Imaging Impressions Brain MRI 07/05/20 00:00 IMPRESSION: No pituitary lesions are identified. There is no sellar/suprasellar mass effect. Unremarkable MRI of the brain and pituitary gland. DS: Summary Hospital Course Hospital Course: Chief Complaint: crisis Sources of Information: patient interviewed ( not able to give a clear narrative in history at this time) and crisis/core team assessment reviewed HPI Narrative: patient is a 24-year-old female brought to the emergency room by ambulance after her mother called 911. patient had been acting bizarrely at restorationist taking of her clothes feeling that she had done bad things and that she was the devil. She required chemical and physical restraint in the emergency room due to combative behavior. Patient has a history of bizarre psychotic behavior had been hospitalized previously in [place] patient unable to give me the time frame or dates. She apparently has not been taking antipsychotic medication she had been on Invega Systane a. patient has been off medication for the past 5 months. There is a history of bizarre self-harming behavior stabbing herself a pencil Past Psychiatric History: please see crisis eval for full hx per patient report 1 psychiatric admission was on Invega injectable previously Medical Evaluation Reviewed: Yes [facility] Medical History Schizophrenia Family History: positive for bipolar disorder Social History: patient currently living with her mother recently discharged from the [employer] secondary to psychotic break she is not no children Substance History: positive history of cocaine and marijuana use Trauma History: unclear at this time HOSPITAL COURSE THE PATIENT WAS WITHDRAWN FEARFUL MOSTLY MUTE ON ADMISSION. SHE WAS THOUGHT BLOCKING SHE DID HAVE AND PROLACTIN WAS NOTED TO BE ELEVATED AT 96. SHE HAD BEEN ON INVEGA IN THE PAST HAD BEEN STABLE FOR. OF FEW MONTHS EVENTUALLY MOVED TO [place] WAS LIVING WITH HER MOTHER. SHE HAD BEEN SMOKING MARIJUANA AND HAD USED COCAINE ON 1 OR 2 OCCASIONS. SHE STATED THAT SHE BE GET TO HEAR GOD'S VOICE AND THAT SHE NEEDED TO BE PUNISHED. SHE WAS VAGUE REGARDING ANY ELEVATED MOOD STATES OR DEPRESSION. THE PATIENT WAS WITHDRAWN ANXIOUS INTERNALLY PREOCCUPIED FOR MOST OF THE EARLY ADMISSION. ABILIFY WAS CHOSEN BECAUSE OF LACK OF INCREASE IN PROLACTIN ON ABILIFY. ABILIFY WAS INCREASED TO 10 MG EVENTUALLY THE PATIENT HAD A SMALLWOOD AFFECT DENIED HALLUCINATIONS WERE COMMAND HALLUCINATIONS OR COMMANDS FOR FROM GOD OR THE DEVIL THAT SHE HAD PREVIOUSLY BEEN EXPERIENCING THE PATIENT WAS [facility] TO [facility] [place] ARRANGED THIS THE PATIENT WAS GIVEN EDUCATION REGARDING ABILIFY NEGATIVE BRAIN MRI INCREASED PROLACTIN AND QUESTION OF BIPOLAR DISORDER ESPECIALLY GIVEN FAMILY HISTORY Time Spent with Patient Time attestation: Total time spent providing and/or coordinating discharge services:
== END 2020-07-07 01:15 | disposition home or self-care (01) | DRG 885 ==
LOC: HO.ED 06-29 18:36 → HO.PM5 06-29 19:04
PROVIDERS: Physician Assistant; Psychiatry & Neurology Psychiatry; Admitting Provider Psychiatry & Neurology Psychiatry; Emergency Provider Emergency Medicine; Visit Provider Psychiatry & Neurology Psychiatry
DX: F23 Brief psychotic disorder (principal); F14.10 Cocaine abuse, uncomplicated; Z20.828 Contact with and (suspected) exposure to other viral communicable diseases; Z87.891 Personal history of nicotine dependence; Z79.899 Other long term (current) drug therapy
CPT/HCPCS: 36415; 70553; 80048; 80061; 80076; 80307; 81003; 81025; 83036; 84146; 84443; 85025; 87635; 90792; 96372; 99231; 99232; 99239; 99285; A9585; J1200; J2060